=== PATIENT | female | born 1975 | race Caucasian/White ===

== ENCOUNTER → 2022-08-14 | Outpatient (CLI) | payer MEDICARE | LOC: KOH-I 08-08 14:30 | DX: M79.671 Pain in right foot (principal); G89.29 Other chronic pain; M20.41 Other hammer toe(s) (acquired), right foot; M10.071 Idiopathic gout, right ankle and foot; M77.31 Calcaneal spur, right foot; M19.071 Primary osteoarthritis, right ankle and foot | CPT/HCPCS: 73718 ==